=== PATIENT | female | born 1980 | race American Indian/Alaskan Native ===

== ENCOUNTER 2017-09-16 08:05 | Day surgery (SDC) | payer MEDICARE ==
[2017-09-16] MEDS ORDERED: NACL 0.9% 1000 ML 1,000 ML IV SCH (09:00)
[2017-09-16] MEDS ORDERED: DIPRIVAN 10 MG/ML IV ONE ×2 (10:59)
--- NOTE | 2017-09-16 11:16 | Short Stay Summary ---
Short Stay Documentation Date of service: 09/16/17 Narrative H&P: The patient presents for EGD/dilation for dysphagia and has a history of chronic GERD> - History H&P: obtained from office Past Medical History: arthritis, diabetes, GERD, hypertension, other (morbid obesity) Past Surgical History: cholecystectomy Social history: no significant social history, no smoking, no alcohol abuse - Allergies and Medications Current Medications: Allergies amoxicillin trihydrate [From Augmentin] Allergy (Verified 05/14/13 19:41) Rash lorazepam [From Ativan] Allergy (Verified 05/14/13 19:41) Unknown meperidine HCl [From Demerol] Allergy (Verified 05/14/13 19:41) Unknown potassium clavulanate [From Augmentin] Allergy (Verified 05/14/13 19:41) Rash shellfish derived Adverse Reaction (Verified 07/04/14 09:33) Unknown Home Medications Medication Instructions Recorded Confirmed Last Taken Type ALBUTEROL Inhaler [ProAir HFA 2 puff IH QID PRN 05/14/13 09/16/17 06/08/14 History Inhaler] Lisinopril [Zestril TAB] 20 mg PO QDAY 05/14/13 09/16/17 09/15/17 History acetaZOLAMIDE [Diamox TAB] 500 mg PO TID 05/14/13 09/16/17 07/07/14 History metFORMIN [Glucophage] 500 mg PO BID 05/14/13 09/16/17 09/15/17 History Omeprazole 40 mg PO DAILY 07/04/14 09/16/17 07/07/14 History Zonisamide [Zonegran] 25 mg PO DAILY 07/04/14 09/16/17 07/07/14 History HYDROcodone/APAP 5-325 [[place] 1 each PO Q6HR PRN #10 tablet 06/26/15 09/16/17 Unknown Rx 5/325] Ibuprofen [Motrin] 800 mg PO Q8HR PRN #60 tablet 06/26/15 09/16/17 Unknown Rx Cymbalta 60 mg PO DAILY 09/16/17 09/16/17 09/15/17 History Methotrexate 1 tab PO QWEEK 09/16/17 09/16/17 09/09/17 History sulfaSALAzine 500 mg PO BID 09/16/17 09/16/17 09/15/17 History Active Medications Sodium Chloride (Nacl 0.9% 1000 Ml) 1,000 mls @ 50 mls/hr IV DIRECT JUDI Last Admin: 09/16/17 09:37 Dose: 50 mls/hr - Physical exam General appearance: no acute distress, well-nourished, obese Integumentary: no rash, no growths, no abnormal pigmentation HEENT: Atraumatic, PERRLA, EOMI, Mucous membr. moist/pink Lungs: Clear to auscultation, Normal air movement Breasts: deferred Heart: Regular rate, Normal S1, Normal S2, No murmurs Gastrointestinal: normoactive bowel sounds, no tenderness, no distended, no masses, no organomegaly, no hepatomegaly, no splenomegaly Female Genitourinary: deferred Rectal Exam: deferred Extremities: no ischemia, pulses intact, pulses symmetrical, No edema, normal temperature, normal color, abnormal Neurological: Normal gait, Normal speech, Strength at 5/5 X4 ext, Normal tone, Sensation intact, Cranial nerves 3-12 NL - Brief post op/procedure progress note Date of procedure: 09/16/17 Findings: see dictated report Estimated blood loss: none Pathology: none Condition: stable - Disposition Condition at discharge: Good Disposition: DC-01 TO HOME OR SELFCARE - Discharge Diagnoses (1) Dysphagia Status: Acute (2) GERD (gastroesophageal reflux disease) Status: Acute Short Stay Discharge Plan Activity: other (no driving for 24 hours) Weight Bearing Status: Full Weight Bearing Diet: diabetic Follow up with: TAM LOPEZ MD [Primary Care Provider] - 7 Days
--- NOTE | 2017-09-16 11:20 | Operative Report ---
Operative Report Operative Report: Date of procedure: 09/16/2017 Procedure: Esophagogastroduodenoscopy with balloon dilation of the distal esophagus. Preprocedure diagnosis: Dysphagia to solid foods. Gastroesophageal reflux. Post procedure diagnosis: Small sliding hiatus hernia. No definite esophageal stricture. Bile reflux gastritis. Endoscopist: Dr. Cuenca Anesthesia: Monitored anesthesia care per anesthesia department Medications: Propofol per anesthesia Estimated blood loss: 0 After careful discussion of the nature and purpose of the procedure as well as details the technique risks benefits and alternatives consent was obtained. The patient was placed in the left lateral decubitus position and medicated per anesthesia. The tip of the [employer] ([employer] EQ 570 video scope was passed per orum under direct vision into the esophagus and advanced into the stomach and descending duodenum. The descending duodenum the duodenal bulb and pylorus were symmetrical and normal. The scope was withdrawn into the stomach and the stomach then gently insufflated with air. The antrum was normal except for mild hyperemia and the presence of bile. The stomach was further insufflated and the scope was then retroflexed and partially withdrawn. The cardia, fundus , and body of the stomach were within normal limits and easily distensible.The scope was then withdrawn in the forward position. The esophagogastric junction was at 40 cm. There was a small sliding hiatus hernia present.. The esophageal body was normal throughout. No definite stricture is present. Empiric dilation was performed with an 18 mm [id number] balloon. The procedure was was well tolerated and the patient was observed in recovery. Impressions: Small sliding hiatus hernia. Bile reflux gastritis, mild. No definite esophageal stricture. Status post empiric dilation to 18 mm by balloon. Plan: Continue acid suppression therapy and antireflux measures with dietary and lifestyle management. Electronically signed: Anthony Cuenca MD
[2017-09-16 11:50] VITALS: BP 147/72
--- NOTE | 2017-09-16 14:41 | Anesthesia Day of Surgery ---
Anesthesia Day of Surgery - Day of Surgery Patient Examined: Yes Patient H&P Reviewed: Yes Patient is NPO: Yes
--- NOTE | 2017-09-16 14:41 | Anesthesia Consultation ---
Anesthesia Consult and Med Hx Date of service: 09/16/17 - Airway Anesthetic Teeth Evaluation: Good ROM Head & Neck: Adequate Mental/Hyoid Distance: Adequate Mallampati Class: Class II Intubation Access Assessment: Probably Good - Pulmonary Exam CTA: Yes - Cardiac Exam Cardiac Exam: RRR - Pre-Operative Health Status ASA Pre-Surgery Classification: ASA3 Proposed Anesthetic Plan: MAC - Pulmonary Hx Asthma: Yes Hx Sleep Apnea: Yes (04/17) - Cardiovascular System Hx Hypertension: Yes - Gastrointestinal Hx Gastroesophageal Reflux Disease: Yes - Endocrine Hx Non-Insulin Dependent Diabetes: Yes - Other Systems Hx Obesity: Yes - Additional Comments Anesthesia Medical History Comments: rheumatoid arthiritis
--- NOTE | 2017-09-16 15:11 | Post Anesthesia Evaluation ---
- Post Anesthesia Evaluation Patient Participated: Yes Airway Patent: Yes Stable Respiratory Function: Yes Nausea/Vomiting: No Temp > 96.8F: Yes Pain Manageable: Yes Adequeate Hydration: Yes Anesthesia Complications: No
== END 2017-09-16 08:06 | disposition home or self-care (01) ==
LOC: GIO 08:05
PROVIDERS: ATTEND Internal Medicine Gastroenterology
DX: R13.10 Dysphagia, unspecified (principal); M19.90 Unspecified osteoarthritis, unspecified site; I10 Essential (primary) hypertension; E66.01 Morbid (severe) obesity due to excess calories; E11.9 Type 2 diabetes mellitus without complications; K21.9 Gastro-esophageal reflux disease without esophagitis; M06.9 Rheumatoid arthritis, unspecified; G47.30 Sleep apnea, unspecified; J45.909 Unspecified asthma, uncomplicated; G43.909 Migraine, unspecified, not intractable, without status migrainosus; K44.9 Diaphragmatic hernia without obstruction or gangrene; Z79.84 Long term (current) use of oral hypoglycemic drugs; Z79.82 Long term (current) use of aspirin; Z98.890 Other specified postprocedural states; Z90.49 Acquired absence of other specified parts of digestive tract; Z88.8 Allergy status to other drugs, medicaments and biological substances; Z88.1 Allergy status to other antibiotic agents; Z91.013 Allergy to seafood
CPT/HCPCS: 43249; 81025; 82962; C1726; J2704; J7030

== ENCOUNTER 2018-11-26 10:08 | Emergency (ER) | payer MEDICARE ==
[2018-11-26 10:14] VITALS: BP 142/78
[2018-11-26 11:13] LABS: Bilirubin,Urine NEG (Negative); Blood,Urine NEG (Negative); Calcium Oxalate Crystals,Urine 1+; Color,Urine Yellow (Yellow); Mucus,Urine 3+ /HPF
[2018-11-26 11:22] LABS: HCG Qualitative,Urine Negative (Negative)
[2018-11-26] MEDS ORDERED: TORADOL IM ONE (11:27)
--- NOTE | 2018-11-26 11:32 | Emergency Department Report ---
ED Abdominal Pain HPI - General Chief Complaint: Abdominal Pain Stated Complaint: LFT SIDE PELVIC PAIN/NAUSEA Time Seen by Provider: 11/26/18 10:58 Source: patient Mode of arrival: Ambulatory Limitations: No Limitations - History of Present Illness Initial Comments: Ms. Martini is 38 yo female with hx of PCOS, ovarian cyst, asthma, diabetes who presents with severe LLQ pain nausea since this morning. No fever. No trauma. MD Complaint: abdominal pain -: Gradual Location: LLQ Severity: moderate Severity scale (0 -10): 8 Quality: cramping, sharp Improves With: nothing Worsens With: nothing - Related Data Home Medications Medication Instructions Recorded Confirmed Last Taken ALBUTEROL Inhaler (OR & NICU) 2 puff IH QID PRN 05/14/13 09/16/17 06/08/14 [ProAir HFA Inhaler] Lisinopril [Zestril TAB] 20 mg PO QDAY 05/14/13 09/16/17 09/15/17 acetaZOLAMIDE [Diamox TAB] 500 mg PO TID 05/14/13 09/16/17 07/07/14 metFORMIN [Glucophage] 500 mg PO BID 05/14/13 09/16/17 09/15/17 Omeprazole 40 mg PO DAILY 07/04/14 09/16/17 07/07/14 Zonisamide [Zonegran] 25 mg PO DAILY 07/04/14 09/16/17 07/07/14 Cymbalta 60 mg PO DAILY 09/16/17 09/16/17 09/15/17 Methotrexate 1 tab PO QWEEK 09/16/17 09/16/17 09/09/17 sulfaSALAzine 500 mg PO BID 09/16/17 09/16/17 09/15/17 Previous Rx's Medication Instructions Recorded Last Taken Type HYDROcodone/APAP 5-325 [[place] 1 each PO Q6HR PRN #10 tablet 06/26/15 Unknown Rx 5-325 mg TAB] Ibuprofen [Motrin 800 MG tab] 800 mg PO Q8HR PRN #60 tablet 06/26/15 Unknown Rx HYDROcodone/APAP 5-325 [[place] 1 each PO Q6HR PRN #15 tablet 11/26/18 Unknown Rx 5/325] Ondansetron [Zofran Odt] 4 mg PO Q8HR PRN #10 tab.rapdis 11/26/18 Unknown Rx Allergies Allergy/AdvReac Type Severity Reaction Status Date / Time amoxicillin trihydrate Allergy Rash Verified 05/14/13 19:41 [From Augmentin] lorazepam [From Ativan] Allergy Unknown Verified 05/14/13 19:41 meperidine HCl [From Demerol] Allergy Unknown Verified 05/14/13 19:41 potassium clavulanate Allergy Rash Verified 05/14/13 19:41 [From Augmentin] shellfish derived AdvReac Unknown Verified 07/04/14 09:33 ED Review of Systems ROS: Stated complaint: LFT SIDE PELVIC PAIN/NAUSEA Other details as noted in HPI Comment: All other systems reviewed and negative Constitutional: denies: fever, malaise Respiratory: denies: cough Cardiovascular: denies: chest pain ED Past Medical Hx - Past Medical History Previous Medical History?: Yes Hx Hypertension: Yes Hx Diabetes: Yes (NIDDM '07) Hx GERD: Yes Hx Arthritis: Yes Hx Headaches / Migraines: Yes Hx Asthma: Yes 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 gallbladder - Social History Smoking Status: Never Smoker Substance Use Type: None - Medications Home Medications: Home Medications Medication Instructions Recorded Confirmed Last Taken Type ALBUTEROL Inhaler (OR & NICU) 2 puff IH QID PRN 05/14/13 09/16/17 06/08/14 History [ProAir HFA Inhaler] Lisinopril [Zestril TAB] 20 mg PO QDAY 05/14/13 09/16/17 09/15/17 History acetaZOLAMIDE [Diamox TAB] 500 mg PO TID 05/14/13 09/16/17 07/07/14 History metFORMIN [Glucophage] 500 mg PO BID 05/14/13 09/16/17 09/15/17 History Omeprazole 40 mg PO DAILY 07/04/14 09/16/17 07/07/14 History Zonisamide [Zonegran] 25 mg PO DAILY 07/04/14 09/16/17 07/07/14 History HYDROcodone/APAP 5-325 [[place] 1 each PO Q6HR PRN #10 tablet 06/26/15 09/16/17 Unknown Rx 5-325 mg TAB] Ibuprofen [Motrin 800 MG tab] 800 mg PO Q8HR PRN #60 tablet 06/26/15 09/16/17 Unknown Rx Cymbalta 60 mg PO DAILY 09/16/17 09/16/17 09/15/17 History Methotrexate 1 tab PO QWEEK 09/16/17 09/16/17 09/09/17 History sulfaSALAzine 500 mg PO BID 09/16/17 09/16/17 09/15/17 History HYDROcodone/APAP 5-325 [[place] 1 each PO Q6HR PRN #15 tablet 11/26/18 Unknown Rx 5/325] Ondansetron [Zofran Odt] 4 mg PO Q8HR PRN #10 tab.rapdis 11/26/18 Unknown Rx ED Physical Exam - General Limitations: No Limitations General appearance: alert, in no apparent distress - Head Head exam: Present: atraumatic, normocephalic - Eye Eye exam: Present: normal appearance - ENT ENT exam: Present: mucous membranes moist - Neck Neck exam: Present: normal inspection, full ROM - Respiratory Respiratory exam: Present: normal lung sounds bilaterally. Absent: respiratory distress, wheezes, rhonchi, stridor - Cardiovascular Cardiovascular Exam: Present: regular rate, normal rhythm, normal heart sounds. Absent: systolic murmur, diastolic murmur, rubs, gallop - GI/Abdominal GI/Abdominal exam: Present: soft, normal bowel sounds. Absent: distended, tenderness, guarding, rebound - Extremities Exam Extremities exam: Present: normal inspection - Back Exam Back exam: Present: normal inspection - Neurological Exam Neurological exam: Present: alert, oriented X3 - Psychiatric Psychiatric exam: Present: normal affect, normal mood - Skin Skin exam: Present: warm, dry, intact, normal color. Absent: rash ED Course Vital Signs 11/26/18 10:13 Temperature 97.9 F Pulse Rate 78 Respiratory 18 Rate Blood Pressure 142/78 O2 Sat by Pulse 98 Oximetry ED Medical Decision Making - Lab Data Result diagrams: 11/26/18 11:04 11/26/18 11:04 Laboratory Results - last 24 hr 11/26/18 11/26/18 11/26/18 11:04 11:04 Unknown WBC 4.4 L RBC 4.44 Hgb 12.9 Hct 39.1 MCV 88 MCH 29 MCHC 33 RDW 14.4 Plt Count 266 Lymph % (Auto) 35.1 H [place] % (Auto) 9.9 H Eos % (Auto) 4.1 Baso % (Auto) 1.2 Lymph # 1.6 [place] # 0.4 Eos # 0.2 Baso # 0.1 Seg Neutrophils % 49.7 Seg Neutrophils # 2.2 Sodium 140 Potassium 3.9 Chloride 96.2 L Carbon Dioxide 25 Anion Gap 23 BUN 14 Creatinine 0.7 Estimated GFR > 60 BUN/Creatinine Ratio 20 Glucose 113 H Calcium 9.1 Urine Color Yellow Urine Turbidity Clear Urine pH 5.0 Ur Specific [place] 1.040 H Urine Protein 30 mg/dl Urine Glucose (UA) Neg Urine Ketones Neg Urine Blood Neg Urine Nitrite Neg Urine Bilirubin Neg Urine Urobilinogen 2.0 Ur Leukocyte Esterase Neg Urine WBC (Auto) 4.0 Urine RBC (Auto) 4.0 U Epithel Cells (Auto) 3.0 Calcium Oxalate Crystal 1+ Urine Mucus 3+ Urine HCG, Qual Negative - Medical Decision Making Mr. Martini presents with left-sided abdominal pain pelvic pain differential diagnosis includes ovarian cyst versus dysmenorrhea versus endometriosis. She's had recurrent pain every few months which she has attributed to ovarian cyst History of previous pelvic surgery for large ovarian cysts. She appears well on today's exam. CBC chemistry within normal limits. She understands return precautions. UPT negative. Urinalysis unremarkable. Prescribed [place] and Zofran. Critical care attestation.: If time is entered above; I have spent that time in minutes in the direct care of this critically ill patient, excluding procedure time. ED Disposition Clinical Impression: Abdominal pain Disposition: DC-01 TO HOME OR SELFCARE Is pt being admited?: No Does the pt Need Aspirin: No Condition: Stable Instructions: Abdominal Pain (ED) Prescriptions: HYDROcodone/APAP 5-325 [[place] 5/325] 1 each PO Q6HR PRN #15 tablet PRN Reason: Pain Ondansetron [Zofran Odt] 4 mg PO Q8HR PRN #10 tab.rapdis PRN Reason: Nausea Referrals: OWEN MEDELLIN MD [Primary Care Provider] - 3-5 Days
[2018-11-26 11:39] LABS: Basophils # (Auto) 0.1 K/mm3 (0.0-0.1); Basophils % (Auto) 1.2 % (0.0-1.8); Eosinophils # (Auto) 0.2 K/mm3 (0.0-0.4); Eosinophils % (Auto) 4.1 % (0.0-4.3); Hematocrit 39.1 % (30.3-42.9); Hemoglobin 12.9 gm/dl (10.1-14.3); Lymphocytes # (Auto) 1.6 K/mm3 (1.2-5.4); Lymphocytes % (Auto) 35.1 % (13.4-35.0); Mean Corpuscular HGB Conc 33 % (30-34); Mean Corpuscular Volume 88 fl (79-97); Monocytes # (Auto) 0.4 K/mm3 (0.0-0.8); Monocytes % (Auto) 9.9 % (0.0-7.3); Platelet Count 266 K/mm3 (140-440); Red Blood Count 4.44 M/mm3 (3.65-5.03); Red Cell Distribution Width 14.4 % (13.2-15.2)
[2018-11-26 11:58] LABS: BUN/Creatinine Ratio 20; Blood Urea Nitrogen 14 mg/dL (7-17); Calcium 9.1 mg/dL (8.4-10.2); Hemolysis Index 0
[2018-11-26] MEDS ORDERED: ZOFRAN ODT ONE (12:03)
[2018-11-26] MEDS ORDERED: ZOFRAN ODT PO ONE (12:06)
== END 2018-11-26 12:22 | disposition home or self-care (01) ==
LOC: ED 10:08
DX: R10.32 Left lower quadrant pain (principal); R11.0 Nausea; I10 Essential (primary) hypertension; E11.9 Type 2 diabetes mellitus without complications; K21.9 Gastro-esophageal reflux disease without esophagitis; M19.90 Unspecified osteoarthritis, unspecified site; G43.909 Migraine, unspecified, not intractable, without status migrainosus; J45.909 Unspecified asthma, uncomplicated; Z90.49 Acquired absence of other specified parts of digestive tract; Z88.8 Allergy status to other drugs, medicaments and biological substances; Z88.1 Allergy status to other antibiotic agents; Z91.013 Allergy to seafood
CPT/HCPCS: 36415; 80048; 81001; 81025; 85025; 96372; 99283; J1885; Q0162

== ENCOUNTER 2019-05-30 11:47 | Emergency (ER) | payer MEDICARE ==
[2019-05-30 12:26] VITALS: BP 172/73
--- NOTE | 2019-05-30 12:26 | Event Note ---
ED Screening Note ED Screening Note: presents generalized abd pain lower back pain vaginal bleed for 2 months [employer] put her on control, has had a US and endometrial tissue sample already PMHx HTN, DM, PCOS, fibroids, RA, fibromyalgia This initial assessment/diagnostic orders/clinical plan/treatment(s) is/are subject to change based on patients health status, clinical progression and re- assessment by fellow clinical providers in the ED. Further treatment and workup at subsequent clinical providers discretion. Patient/guardian urged not to elope from the ED as their condition may be serious if not clinically assessed and managed. Initial orders include: labs, UA
[2019-05-30 13:12] LABS: Alanine Aminotransferase 10 units/L (7-56); Albumin 3.5 g/dL (3.9-5); BUN/Creatinine Ratio 23; Blood Urea Nitrogen 16 mg/dL (7-17); Calcium 8.7 mg/dL (8.4-10.2); Hemolysis Index 0
[2019-05-30 13:21] LABS: Bacteria,Urine 1+ /HPF (Negative); Bilirubin,Urine NEG (Negative); Blood,Urine LG (Negative); Color,Urine Red (Yellow); Mucus,Urine FEW /HPF; RBC,Urine > 182.0 /HPF (0.0-6.0); Urobilinogen,Urine < 2.0 mg/dL (<2.0)
[2019-05-30 13:26] LABS: Hematocrit 35.5 % (30.3-42.9); Hemoglobin 11.6 gm/dl (10.1-14.3); Mean Corpuscular HGB Conc 33 % (30-34); Mean Corpuscular Volume 90 fl (79-97); Red Blood Count 3.93 M/mm3 (3.65-5.03); Red Cell Distribution Width 14.7 % (13.2-15.2)
[2019-05-30 13:27] LABS: Basophils # (Auto) 0.1 K/mm3 (0.0-0.1); Basophils % (Auto) 1.1 % (0.0-1.8); Eosinophils # (Auto) 0.2 K/mm3 (0.0-0.4); Eosinophils % (Auto) 3.7 % (0.0-4.3); Lymphocytes # (Auto) 1.4 K/mm3 (1.2-5.4); Lymphocytes % (Auto) 28.1 % (13.4-35.0); Monocytes # (Auto) 0.4 K/mm3 (0.0-0.8); Monocytes % (Auto) 8.4 % (0.0-7.3); Platelet Count 273 K/mm3 (140-440)
[2019-05-30] MEDS ORDERED: HYDROcodone/ACETAMINOPHEN 5-325 MG TAB PO ONE (15:00)
--- NOTE | 2019-05-30 15:05 | Emergency Department Report ---
ED Female HPI - General Chief complaint: Abdominal Pain Stated complaint: DIZZINESS/ABD PAIN/VAGINAL BLEEDING Time Seen by Provider: 05/30/19 12:23 Source: patient Mode of arrival: Ambulatory Limitations: No Limitations - History of Present Illness Initial comments: presents generalized abd pain lower back pain vaginal bleed for 2 months [employer] put her on control, has had a US and endometrial tissue sample already PMHx HTN, DM, PCOS, fibroids, RA, fibromyalgia Complaint: vaginal bleeding Onset/Timin -: Gradual, month(s) Radiation: non-radiating Severity scale (0 -10): 5 Quality: cramping Consistency: intermittent Improves with: none Worsens with: none - Related Data Home Medications Medication Instructions Recorded Confirmed Last Taken ALBUTEROL Inhaler (OR & NICU) 2 puff IH QID PRN 05/14/13 09/16/17 06/08/14 [ProAir HFA Inhaler] Lisinopril [Zestril TAB] 20 mg PO QDAY 05/14/13 09/16/17 09/15/17 acetaZOLAMIDE [Diamox TAB] 500 mg PO TID 05/14/13 09/16/17 07/07/14 metFORMIN [Glucophage] 500 mg PO BID 05/14/13 09/16/17 09/15/17 Omeprazole 40 mg PO DAILY 07/04/14 09/16/17 07/07/14 Zonisamide [Zonegran] 25 mg PO DAILY 07/04/14 09/16/17 07/07/14 Cymbalta 60 mg PO DAILY 09/16/17 09/16/17 09/15/17 Methotrexate 1 tab PO QWEEK 09/16/17 09/16/17 09/09/17 sulfaSALAzine 500 mg PO BID 09/16/17 09/16/17 09/15/17 Previous Rx's Medication Instructions Recorded Last Taken Type HYDROcodone/APAP 5-325 [[place] 1 each PO Q6HR PRN #10 tablet 06/26/15 Unknown Rx 5-325 mg TAB] Ibuprofen [Motrin 800 MG tab] 800 mg PO Q8HR PRN #60 tablet 06/26/15 Unknown Rx HYDROcodone/APAP 5-325 [[place] 1 each PO Q6HR PRN #15 tablet 11/26/18 Unknown Rx 5/325] Ondansetron [Zofran Odt] 4 mg PO Q8HR PRN #10 tab.rapdis 11/26/18 Unknown Rx Cyclobenzaprine [Flexeril] 10 mg PO TID PRN #15 tablet 05/30/19 Unknown Rx Allergies Allergy/AdvReac Type Severity Reaction Status Date / Time amoxicillin trihydrate Allergy Rash Verified 05/14/13 19:41 [From Augmentin] lorazepam [From Ativan] Allergy Unknown Verified 05/14/13 19:41 meperidine HCl [From Demerol] Allergy Unknown Verified 05/14/13 19:41 potassium clavulanate Allergy Rash Verified 05/14/13 19:41 [From Augmentin] shellfish derived AdvReac Unknown Verified 07/04/14 09:33 ED Review of Systems ROS: Stated complaint: DIZZINESS/ABD PAIN/VAGINAL BLEEDING Other details as noted in HPI Comment: All other systems reviewed and negative ENT: denies: ear pain Respiratory: denies: cough Cardiovascular: denies: chest pain Gastrointestinal: denies: abdominal pain, nausea, vomiting Genitourinary: abnormal menses Musculoskeletal: back pain Skin: denies: rash ED Past Medical Hx - Past Medical History Previous Medical History?: Yes Hx Hypertension: Yes Hx Diabetes: Yes (NIDDM '07) Hx GERD: Yes Hx Arthritis: Yes Hx Headaches / Migraines: Yes Hx Asthma: Yes 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 gallbladder - Social History Smoking Status: Unknown if ever smoked Substance Use Type: None - Medications Home Medications: Home Medications Medication Instructions Recorded Confirmed Last Taken Type ALBUTEROL Inhaler (OR & NICU) 2 puff IH QID PRN 05/14/13 09/16/17 06/08/14 His tory [ProAir HFA Inhaler] Lisinopril [Zestril TAB] 20 mg PO QDAY 05/14/13 09/16/17 09/15/17 History acetaZOLAMIDE [Diamox TAB] 500 mg PO TID 05/14/13 09/16/17 07/07/14 History metFORMIN [Glucophage] 500 mg PO BID 05/14/13 09/16/17 09/15/17 History Omeprazole 40 mg PO DAILY 07/04/14 09/16/17 07/07/14 History Zonisamide [Zonegran] 25 mg PO DAILY 07/04/14 09/16/17 07/07/14 History HYDROcodone/APAP 5-325 [[place] 1 each PO Q6HR PRN #10 tablet 06/26/15 09/16/17 Unknown Rx 5-325 mg TAB] Ibuprofen [Motrin 800 MG tab] 800 mg PO Q8HR PRN #60 tablet 06/26/15 09/16/17 Unknown Rx Cymbalta 60 mg PO DAILY 09/16/17 09/16/17 09/15/17 History Methotrexate 1 tab PO QWEEK 09/16/17 09/16/17 09/09/17 History sulfaSALAzine 500 mg PO BID 09/16/17 09/16/17 09/15/17 History HYDROcodone/APAP 5-325 [[place] 1 each PO Q6HR PRN #15 tablet 11/26/18 Unknown Rx 5/325] Ondansetron [Zofran Odt] 4 mg PO Q8HR PRN #10 tab.rapdis 11/26/18 Unknown Rx Cyclobenzaprine [Flexeril] 10 mg PO TID PRN #15 tablet 05/30/19 Unknown Rx ED Physical Exam - General Limitations: No Limitations General appearance: alert, in no apparent distress - Head Head exam: Present: atraumatic, normocephalic - Eye Eye exam: Present: normal appearance, PERRL, EOMI Pupils: Present: normal accommodation - ENT ENT exam: Present: normal exam - Neck Neck exam: Present: normal inspection - Respiratory Respiratory exam: Present: normal lung sounds bilaterally - Cardiovascular Cardiovascular Exam: Present: regular rate, normal rhythm - GI/Abdominal GI/Abdominal exam: Present: soft - Extremities Exam Extremities exam: Present: normal inspection, tenderness - Back Exam Back exam: Present: normal inspection - Neurological Exam Neurological exam: Present: alert, oriented X3, CN II-XII intact - Psychiatric Psychiatric exam: Present: normal affect ED Course Vital Signs 05/30/19 11:52 Pulse Rate 76 Respiratory 18 Rate Blood Pressure 172/73 O2 Sat by Pulse 96 Oximetry ED Medical Decision Making - Lab Data Result diagrams: 05/30/19 12:41 05/30/19 12:41 - Medical Decision Making REFUSED EXAM, STATES SHE JUST HAD ONE BY HER REGULATORY LEAD LAST WEEK. Critical care attestation.: If time is entered above; I have spent that time in minutes in the direct care of this critically ill patient, excluding procedure time. ED Disposition Clinical Impression: Abnormal uterine bleeding Disposition: TO HOME OR SELFCARE Is pt being admited?: No Does the pt Need Aspirin: No Condition: Stable Instructions: Abdominal Pain (ED) Prescriptions: Cyclobenzaprine [Flexeril] 10 mg PO TID PRN #15 tablet PRN Reason: Pain , Severe (7-10)
== END 2019-05-30 17:38 | disposition home or self-care (01) ==
LOC: ED 11:47
DX: N93.9 Abnormal uterine and vaginal bleeding, unspecified (principal); I10 Essential (primary) hypertension; E11.9 Type 2 diabetes mellitus without complications; M79.7 Fibromyalgia; M10.9 Gout, unspecified; J45.909 Unspecified asthma, uncomplicated; G43.909 Migraine, unspecified, not intractable, without status migrainosus; Z90.49 Acquired absence of other specified parts of digestive tract; Z79.899 Other long term (current) drug therapy; Z79.84 Long term (current) use of oral hypoglycemic drugs; Z91.013 Allergy to seafood
CPT/HCPCS: 36415; 80053; 81001; 85025; 99283

== ENCOUNTER 2019-09-15 07:06 | Day surgery (SDC) | payer MEDICARE ==
--- NOTE | 2019-09-13 13:22 | Anesthesia Consultation ---
Anesthesia Consult and Med Hx Date of service: 09/15/19 - Airway Anesthetic Teeth Evaluation: Good ROM Head & Neck: Adequate Mental/Hyoid Distance: Adequate Mallampati Class: Class II - Pulmonary Exam CTA: Yes - Cardiac Exam Cardiac Exam: RRR - Pre-Operative Health Status ASA Pre-Surgery Classification: ASA3 Proposed Anesthetic Plan: General - Pulmonary Hx Smoking: No Hx Asthma: Yes (Last treated over 1 year ago) Hx Sleep Apnea: Yes (Past hx-no longer uses CPAP, morbid obesity) - Cardiovascular System Hx Hypertension: Yes (No CP no SOB with 2 FOS) Hx Heart Murmur: Yes - Central Nervous System Hx Psychiatric Problems: No - Gastrointestinal Hx Gastroesophageal Reflux Disease: Yes (mild) - Endocrine Hx Non-Insulin Dependent Diabetes: Yes - Hematic Hx Anemia: Yes - Other Systems Hx Cancer: No Hx Obesity: Yes
[2019-09-13 13:34] LABS: Basophils # (Auto) 0.1 K/mm3 (0.0-0.1); Basophils % (Auto) 1.2 % (0.0-1.8); Eosinophils # (Auto) 0.1 K/mm3 (0.0-0.4); Eosinophils % (Auto) 2.1 % (0.0-4.3); Hematocrit 39.3 % (30.3-42.9); Hemoglobin 12.9 gm/dl (10.1-14.3); Lymphocytes # (Auto) 1.5 K/mm3 (1.2-5.4); Lymphocytes % (Auto) 33.7 % (13.4-35.0); Mean Corpuscular HGB Conc 33 % (30-34); Mean Corpuscular Volume 87 fl (79-97); Monocytes # (Auto) 0.4 K/mm3 (0.0-0.8); Monocytes % (Auto) 8.5 % (0.0-7.3); Platelet Count 280 K/mm3 (140-440); Red Cell Distribution Width 14.5 % (13.2-15.2)
[2019-09-13 13:41] LABS: BUN/Creatinine Ratio 34; Blood Urea Nitrogen 24 mg/dL (7-17); Calcium 8.8 mg/dL (8.4-10.2); Hemolysis Index 16
--- NOTE | 2019-09-13 15:51 | History and Physical Report ---
History of Present Illness Date of examination: 09/13/19 Chief complaint: dysfunctional uterine bleeding History of present illness: Pt is a 39 year old -[place] female nulligravida who presents for surgical evaluation of dysfunctional uterine bleeding which persists despite medical management. Past History Past Medical History: asthma, heart disease, hypertension, diabetes, neurologic (Pseudotumor cerebri), migraines, GERD, other (Rheumatoid Arthritis) Past Surgical History: cholecystectomy, IRRIGATOR GRAVITY FLOW/uterine surgery (cystectomy ), other (left foot surgery ) IRRIGATOR GRAVITY FLOW History: fibroids Family/Genetic History: hypertension Social history: no significant social history - Obstetrical History : 0 Medications and Allergies Allergies Allergy/AdvReac Type Severity Reaction Status Date / Time amoxicillin trihydrate Allergy Rash Verified 09/10/19 15:22 [From Augmentin] lorazepam [From Ativan] Allergy Unknown Verified 09/10/19 15:22 meperidine HCl [From Demerol] Allergy Unknown Verified 09/10/19 15:22 potassium clavulanate Allergy Rash Verified 09/10/19 15:22 [From Augmentin] shellfish derived AdvReac Unknown Verified 09/10/19 15:22 Home Medications Medication Instructions Recorded Confirmed Last Taken Type Albuterol INH(or & Nicu Only) 2 puff IH QID PRN 05/14/13 09/13/19 06/08/14 Histo ry [ProAir HFA Inhaler] lisinopriL [Zestril TAB] 20 mg PO QDAY 05/14/13 09/13/19 09/15/17 History metFORMIN [Glucophage] 500 mg PO BID 05/14/13 09/13/19 09/15/17 History Ibuprofen [Motrin 800 MG tab] 800 mg PO Q8HR PRN #60 tablet 06/26/15 09/13/19 Unknown Rx Fluticasone [Flonase] 1 spray NS QDAY 09/13/19 09/13/19 Unknown History Phenylephrine/Dm/Acetaminop/GG 1 each PO Q6H PRN 09/13/19 09/13/19 Unknown History [Wal-Phed PE Pressure+Pain+Cold] Pregabalin [Lyrica] 300 mg PO DAILY 09/13/19 09/13/19 Unknown History Semaglutide [Ozempic] 1 mg SQ QWEEK 09/13/19 09/13/19 Unknown History Review of Systems All systems: negative - Vital Signs Vital signs: Vital Signs Temp Pulse Resp BP Pulse Ox 98 F 78 22 149/86 100 09/13/19 12:45 09/13/19 12:45 09/13/19 12:45 09/13/19 12:45 09/13/19 12:45 Temp Pulse Resp BP Pulse Ox 98 F 78 22 149/86 100 09/13/19 12:45 09/13/19 12:45 09/13/19 12:45 09/13/19 12:45 09/13/19 12:45 - Physical Exam Breasts: Positive: deferred Cardiovascular: Regular rate Lungs: Positive: Clear to auscultation Abdomen: Positive: soft (obese) Extremities: Positive: normal Results Result Diagrams: 09/13/19 12:45 09/13/19 12:45 Abnormal lab results 09/13/19 09/13/19 Range/Units 12:45 12:45 WBC 4.3 L (4.5-11.0) K/mm3 [facility] % (Auto) 8.5 H (0.0-7.3) % Chloride 108.4 H (98-107) mmol/L Carbon Dioxide 19 L (22-30) mmol/L BUN 24 H (7-17) mg/dL Glucose 104 H (65-100) mg/dL All other labs normal. Assessment and Plan A: Dysfunctional Uterine Bleeding Fibroid Uterus Morbid Obesity Multiple Medical Comorbidities P: Proceed with Hysteroscopy, Myosure endometrial sampling and other indicated procedures
[~2019-09-15 07:06] MED LIST: LACTATED RINGERS 1,000 ML IV SCH
[2019-09-15] MEDS ORDERED: propofoL 200 MG/20 ML VIAL IV ONE (07:18)
[2019-09-15] MEDS ORDERED: HYDROmorphone 1 MG/1 ML INJ ONE (07:18)
[2019-09-15] MEDS ORDERED: LIDOCAINE MPF (2%) 20 MG/1 ML VIAL 5 ML ONE (07:18)
--- NOTE | 2019-09-15 07:20 | Anesthesia Day of Surgery ---
Anesthesia Day of Surgery - Day of Surgery Patient Examined: Yes Patient H&P Reviewed: Yes Patient is NPO: Yes
[2019-09-15] MEDS ORDERED: ONDANSETRON 4 MG/2 ML INJ IV PRN (07:30)
[2019-09-15] MEDS ORDERED: fentaNYL 100 MCG/2 ML INJ IV PRN (07:30)
[2019-09-15] MEDS ORDERED: SILVER NITRATE APPLICATOR 1 EA TP ONE ×2 (07:54→08:55)
[2019-09-15] MEDS ORDERED: GENTAMICIN 400 MG in SODIUM CHLORIDE 0.9% 100 ML IV SCH (08:00)
[2019-09-15] MEDS ORDERED: MIDAZOLAM 2 MG/2 ML INJ IV SCH (08:00)
[2019-09-15] MEDS ORDERED: ONDANSETRON 4 MG/2 ML INJ ONE (09:00)
[2019-09-15] MEDS ORDERED: SODIUM CHLORIDE 0.9% IRRIG SOLN 3000 ML IR ONE (09:00)
[2019-09-15] MEDS ORDERED: KETOROLAC 30 MG/1 ML INJ ONE (09:01)
--- NOTE | 2019-09-15 09:04 | Operative Report ---
Operative Report Operative Report: Date of procedure: September 15, 2019 Preoperative diagnosis: 1)Dysfunctional Uterine Bleeding 2)Uterine Fibroid 3) Morbid Obesity Postoperative diagnosis: Same 4) Endometrial Polyp Procedure: 1)Hysteroscopy 2)Myosure Endometrial Sampling with polypectomy Surgeon: Mayelin Jackson M.D. Findings: 1) Small anteverted uterus 2) Proliferative endometrium with 1 cm polyp on anterior endometrial surface Anesthesia: General with LMA Estimated blood loss: minimal Specimens: endometrial curettings and polyp to pathology Drains: None Complications: None Disposition: Stable to PACU Indications for procedure: Pt is a 39 year old -La[place] female nulligravida who presents for surgical evaluation of dysfunctional uterine bleeding after minimal improvement with medical management. Operation in detail: After the risks, benefits, alternatives and complications of the procedure were explained to the patient, she gave informed consent for the procedure. She was subsequently taken to the operating room and placed in the dorsal supine position with her IV noted to be running well. SCDs noted to be in place and functioning. General anesthesia was then induced without difficulty. The patient was in placed in dorsal lithotomy position and prepped and draped in normal sterile fashion. A timeout was performed. An exam under anesthesia was performed yielding a small anteverted uterus. A red rubber catheter was used to drain the bladder yielding clear urine. An open sided speculum was then placed into the vagina for adequate visualization of the cervix. The anterior lip of the cervix was then grasped with a tenaculum for traction. The cervix was then dilated to accommodate a #19 Ta dilator. At this time, a hysteroscope was introduced to visualize the endometrial cavity which revealed a proliferative emdometrium and a small endometrial polyp. The Myosure Lite device was used to perform a polypectomy and sample the endometrium. All curettings were sent to pathology. All instruments were removed from the uterus atraumatically. At this time, the single-tooth tenaculum was removed from the cervix. Silver nitrate was placed on the tenaculum puncture sites for hemostasis. All instruments were removed from the vagina atraumatically and the procedure was ended. The patient was placed into the dorsal supine position and extubated without difficulty. She was subsequently taken to the PACU in stable condition. She tolerated the procedure well. All counts were correct 2.
--- NOTE | 2019-09-15 09:07 | Short Stay Summary ---
Short Stay Documentation Date of service: 09/15/19 - History H&P: dictated Social history: no significant social history - Allergies and Medications Current Medications: Allergies amoxicillin trihydrate [From Augmentin] Allergy (Verified 09/10/19 15:22) Rash lorazepam [From Ativan] Allergy (Verified 09/10/19 15:22) Unknown meperidine HCl [From Demerol] Allergy (Verified 09/10/19 15:22) Unknown potassium clavulanate [From Augmentin] Allergy (Verified 09/10/19 15:22) Rash shellfish derived Adverse Reaction (Verified 09/10/19 15:22) Unknown Home Medications Medication Instructions Recorded Confirmed Last Taken Type Albuterol INH(or & Nicu Only) 2 puff IH QID PRN 05/14/13 09/13/19 06/08/14 History [ProAir HFA Inhaler] lisinopriL [Zestril TAB] 20 mg PO QDAY 05/14/13 09/13/19 09/14/19 History metFORMIN [Glucophage] 500 mg PO BID 05/14/13 09/13/19 09/14/19 History Ibuprofen [Motrin 800 MG tab] 800 mg PO Q8HR PRN #60 tablet 06/26/15 09/13/19 Unknown Rx Fluticasone [Flonase] 1 spray NS QDAY 09/13/19 09/13/19 09/14/19 History Phenylephrine/Dm/Acetaminop/GG 1 each PO Q6H PRN 09/13/19 09/13/19 09/14/19 History [Wal-Phed PE Pressure+Pain+Cold] Pregabalin [Lyrica] 300 mg PO DAILY 09/13/19 09/13/19 09/14/19 History Semaglutide [Ozempic] 1 mg SQ QWEEK 09/13/19 09/15/19 09/10/19 History Ibuprofen [Motrin] 800 mg PO Q8HR PRN #30 tablet 09/15/19 Unknown Rx metroNIDAZOLE [Flagyl TAB] 500 mg PO BID 09/15/19 09/15/19 09/14/19 History oxyCODONE /ACETAMINOPHEN [Percocet 1 tab PO Q6HR PRN #20 tablet 09/15/19 Unknown Rx 5/325] Active Medications Fentanyl (Sublimaze) 50 mcg IV Q5MIN PRN PRN Reason: Pain , Severe (7-10) Stop: 09/15/19 15:00 Gentamicin Sulfate 400 mg/ (Sodium Chloride) 110 mls @ 165 mls/hr IV PREOP JUDI; Protocol Stop: 09/15/19 14:00 Lactated Ringer's (Lactated Ringers) 1,000 mls @ 75 mls/hr IV DIRECT JUDI Last Admin: 09/15/19 07:50 Dose: 75 mls/hr Documented by: Clindamycin HCl (Cleocin 900 Mg/50 Ml) 900 mg in 50 mls @ 100 mls/hr IV PREOP NR; Protocol Stop: 09/15/19 23:59 Midazolam HCl (Versed) 2 mg IV ONCE JUDI Stop: 09/15/19 12:00 Last Admin: 09/15/19 07:54 Dose: 2 mg Documented by: Ondansetron HCl (Zofran) 4 mg IV ONCE PRN PRN Reason: Nausea And Vomiting Stop: 09/15/19 15:00 - Physical exam Breasts: deferred - Brief post op/procedure progress note Date of procedure: 09/15/19 Pre-op diagnosis: DUB Post-op diagnosis: other (DUB, Endometrial Polyp) Procedure: Hysteroscopy, Myosure Endometrial Polypectomy and Endometrial Sampling Anesthesia: GETA (LMA ) Findings: Small anteverted uterus, proliferative endometrium with 1cm polyp on anterior endometrial surface Surgeon: CRISTOBAL JACKSON Estimated blood loss: minimal Pathology: list (endometrial curettings and polyp) Specimen disposition: to lab Condition: stable - Hospital course Hospital course: Pt underwent hysteroscopy, Myosure endometrial sampling and polypectomy which she tolerated well. She was observed in the PACU until she met discharge crite kelly. She will follow up in the office in [address] Jackson. - Disposition Condition at discharge: Stable Disposition: DC- TO HOME OR SELFCARE - Discharge Diagnoses (1) DUB (dysfunctional uterine bleeding) Status: Acute (2) Endometrial polyp Status: Acute (3) Morbid obesity Status: Acute (4) Diabetes mellitus Status: Acute Qualifiers: Diabetes mellitus type: type 2 Diabetes mellitus mcfp insulin use: without medical terminologist use Diabetes mellitus complication status: with other specified complication Qualified Code(s): E11.69 - Type 2 diabetes mellitus with other specified complication Short Stay Discharge Plan Activity: other (Nothing in vagina, no tub baths for 4 weeks ) Weight Bearing Status: Full Weight Bearing Diet: regular Additional Instructions: NOTHING PER VAGINA FOR 4 WEEKS-NO SEX, NO DOUCHE, NO TAMPOONS, NO BATH. MAY SHOWER AND WASH HAIR.USE SANITARY PAD. CALL FOR F/U APPT. MOTRIN DUE AT 5PM IF NEEDED FOR PAIN. Follow up with: OWEN MEDELLIN MD [Primary Care Provider] - 7 Days CRISTOBAL JACKSON MD [Staff Physician] - 14 Days (Please call to schedule your posto appt in two weeks with Dr Jackson ) Forms: Outpatient Surgery DC Inst. Prescriptions: Ibuprofen [Motrin] 800 mg PO Q8HR PRN #30 tablet PRN Reason: Pain , Severe (7-10) oxyCODONE /ACETAMINOPHEN [Percocet 5/325] 1 tab PO Q6HR PRN #20 tablet PRN Reason: Pain
[2019-09-15 09:51] VITALS: BP 128/75
--- NOTE | 2019-09-15 14:47 | Post Anesthesia Evaluation ---
- Post Anesthesia Evaluation Patient Participated: Yes Airway Patent: Yes Stable Respiratory Function: Yes Nausea/Vomiting: No Temp > 96.8F: Yes Pain Manageable: Yes Adequeate Hydration: Yes Anesthesia Complications: No Block Receding Appropriately: Not Applicable Patient on Ventilator: No
== END 2019-09-15 10:45 | disposition home or self-care (01) ==
LOC: OR 07:06
PROVIDERS: ATTEND Obstetrics & Gynecology
DX: N93.9 Abnormal uterine and vaginal bleeding, unspecified (principal); D25.9 Leiomyoma of uterus, unspecified; E66.01 Morbid (severe) obesity due to excess calories; N84.0 Polyp of corpus uteri; J45.909 Unspecified asthma, uncomplicated; G47.30 Sleep apnea, unspecified; I10 Essential (primary) hypertension; K21.9 Gastro-esophageal reflux disease without esophagitis; E11.9 Type 2 diabetes mellitus without complications; G43.909 Migraine, unspecified, not intractable, without status migrainosus; M06.9 Rheumatoid arthritis, unspecified; Z88.1 Allergy status to other antibiotic agents; Z91.013 Allergy to seafood; Z79.84 Long term (current) use of oral hypoglycemic drugs; Z79.899 Other long term (current) drug therapy; Z68.43 Body mass index [BMI] 50.0-59.9, adult; Z90.49 Acquired absence of other specified parts of digestive tract
CPT/HCPCS: 36415; 58558; 80048; 82962; 84703; 85025; 88305; A4217; C1782; J1170; J1580; J1885; J2250; J2405; J2704; J3010; J7120